=== PATIENT | male | born 1970 | race Caucasian/White ===

== ENCOUNTER 2017-06-19 14:41 | Emergency (ER) | payer BC, OTHER ==
[2017-06-19] MEDS ORDERED: Ketorolac 60 MG/2 ML SDV IM ONE (15:15)
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
[2017-06-19 16:44] VITALS: BP 170/95
== END 2017-06-19 16:42 | disposition home or self-care (01) ==
LOC: MW.ED 14:41
DX: S29.012A Strain of muscle and tendon of back wall of thorax, initial encounter (principal); F17.210 Nicotine dependence, cigarettes, uncomplicated; W11.XXXA Fall on and from ladder, initial encounter
CPT/HCPCS: 96372; 99282; J1885; 99283

== ENCOUNTER 2017-09-22 01:10 | Emergency (ER) | payer BC ==
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
[2017-09-22 02:16] LABS: ACETAMINOPHEN < 3.0 ug/mL; CHLORIDE,CL 108 mmol/L (98-110); SODIUM,NA 144 mmol/L (136-146)
[2017-09-22 02:49] VITALS: BP 130/90
== END 2017-09-22 02:38 ==
LOC: MW.ED 01:10
DX: F32.9 Major depressive disorder, single episode, unspecified (principal); R45.851 Suicidal ideations; F17.210 Nicotine dependence, cigarettes, uncomplicated; Z79.899 Other long term (current) drug therapy
CPT/HCPCS: 36415; 80053; 83735; 84443; 84481; 85025; 93005; 99285; G0480; 99283

== ENCOUNTER 2018-01-23 11:45 | Emergency (ER) | payer BC ==
[2018-01-23] MEDS ORDERED: Aspirin 81 MG Tab.Chew PO ONE (11:51)
[2018-01-23] MEDS ORDERED: Sodium Chloride 0.9% 10 ML Syringe FLUSH PRN (11:51)
[2018-01-23] MEDS ORDERED: Sodium Chloride 0.9% 2.5 ML Syringe FLUSH PRN (11:51)
[2018-01-23] MEDS ORDERED: Nitroglycerin 0.4 MG Tab.SL SL ONE (11:52)
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
--- NOTE | 2018-01-23 12:16 | CR ---
EXAMINATION: Portable chest radiograph. HISTORY: Shortness of breath. FINDINGS: The trachea is midline. The cardiomediastinal silhouette is within normal limits. No pulmonary infilt rates, effusions or pneumothorax. Osseous structures appear unremarkable. IMPRESSION: No acute cardiopulmonary process.
[2018-01-23] MEDS: Nitroglycerin 0.4 MG Tab.SL SL PRN ×2 (12:26→12:33)
[2018-01-23 12:35] LABS: CHLORIDE,CL 103 mmol/L (98-107); SODIUM,NA 140 mmol/L (136-148)
[2018-01-23] MEDS ORDERED: Morphine 2 MG/ML Syringe IVPUSH ONE (12:38)
[2018-01-23] MEDS ORDERED: Ketorolac 30 MG/ML SDV IVPUSH ONE (12:38)
[2018-01-23 14:43] VITALS: BP 154/107
== END 2018-01-23 14:34 | disposition home or self-care (01) ==
LOC: MW.ED 11:45
DX: R07.9 Chest pain, unspecified (principal); F17.210 Nicotine dependence, cigarettes, uncomplicated; F32.9 Major depressive disorder, single episode, unspecified
CPT/HCPCS: 36415; 71045; 80053; 83735; 84484; 85025; 85610; 93005; 96374; 96375; 99285; A9270; G0480; J1885; J2270; 99284

== ENCOUNTER 2018-01-25 01:10 | Emergency (ER) | payer BC ==
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
[2018-01-25 02:01] LABS: CHLORIDE,CL 107 mmol/L (98-107); SODIUM,NA 146 mmol/L (136-148)
[2018-01-25 03:02] VITALS: BP 125/84
== END 2018-01-25 03:10 ==
LOC: MW.ED 01:10
DX: R07.9 Chest pain, unspecified (principal); F10.980 Alcohol use, unspecified with alcohol-induced anxiety disorder; F17.210 Nicotine dependence, cigarettes, uncomplicated; Z79.899 Other long term (current) drug therapy; Y90.6 Blood alcohol level of 120-199 mg/100 ml
CPT/HCPCS: 36415; 80053; 83735; 84484; 93005; 99285; G0480; 99283

== ENCOUNTER 2018-03-18 14:29 | Emergency (ER) | payer SELFPAY ==
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
[2018-03-18] MEDS ORDERED: Ziprasidone Mesylate 20 MG Vial IM ONE (14:59)
[2018-03-18] MEDS ORDERED: Water For Injection, Sterile 20 ML ONE (15:03)
[2018-03-18 15:28] LABS: CHLORIDE,CL 103 mmol/L (98-107); SODIUM,NA 141 mmol/L (136-148)
[2018-03-18 16:15] VITALS: BP 112/76
== END 2018-03-18 16:17 ==
LOC: MW.ED 14:29
DX: F10.129 Alcohol abuse with intoxication, unspecified (principal); Y90.8 Blood alcohol level of 240 mg/100 ml or more; R45.851 Suicidal ideations; F41.9 Anxiety disorder, unspecified; F32.9 Major depressive disorder, single episode, unspecified; F17.210 Nicotine dependence, cigarettes, uncomplicated; Z79.899 Other long term (current) drug therapy
CPT/HCPCS: 36415; 80053; 80305; 81001; 83735; 84443; 85025; 93005; 96372; 99285; G0480; J3486

== ENCOUNTER 2024-06-16 18:10 | Emergency (ER) | payer SELFPAY ==
[2024-06-16 18:35] LABS: BASOPHILS ABSOLUTE AUTO 0.06 K/uL (0.00-0.20); BASOPHILS PERCENT AUTO 0.3 % (0.0-1.0); EOSINOPHILS ABSOLUTE AUTO 0.18 K/uL (0.00-0.45); HEMATOCRIT 43.1 % (42.0-52.0); HEMOGLOBIN 15.1 g/dL (14.0-18.0); IMMATURE GRAN ABSOLUTE AUTO 0.07 K/uL (0.00-0.05); IMMATURE GRAN PERCENT AUTO 0.4 % (0.0-0.4); LYMPHOCYTES ABSOLUTE AUTO 4.56 K/uL (1.00-4.80); LYMPHOCYTES PERCENT AUTO 26.4 % (24.0-44.0); MEAN CORPUSCULAR HEMOGLOBIN 29.7 pg (28.0-32.0); MEAN CORPUSCULAR VOLUME 84.7 fL (83.0-99.0); MONOCYTES ABSOLUTE AUTO 1.34 K/uL (0.00-0.80); MONOCYTES PERCENT AUTO 7.8 % (0.0-8.0); NEUTROPHILS ABSOLUTE AUTO 11.04 K/uL (1.80-7.70); NEUTROPHILS PERCENT AUTO 64.1 % (41.0-71.0); PLATELET COUNT,PLT 252 K/uL (150-400); RED BLOOD CELL COUNT 5.09 M/uL (4.52-5.90); WHITE BLOOD CELL COUNT,WBC 17.25 K/uL (3.9-11.3)
[2024-06-16] MEDS: Ketorolac 30 MG/ML SDV IVPUSH ONE (18:43)
[2024-06-16] MEDS: Sodium Chloride 0.9% 1,000 ML IV ONE ×3 (18:44→20:27)
[2024-06-16 18:58] LABS: APPEARANCE,URINE CLEAR; BILIRUBIN,URINE NEGATIVE (NEGATIVE); COLOR,URINE YELLOW; GLUCOSE,URINE NEGATIVE (NEGATIVE); KETONES,URINE NEGATIVE (NEGATIVE); LEUKOCYTE ESTERASE,URINE NEGATIVE (NEGATIVE); NITRITE,URINE NEGATIVE (NEGATIVE); OCCULT BLOOD,URINE NEGATIVE (NEGATIVE); PROTEIN,URINE NEGATIVE (NEGATIVE); UROBILINOGEN,URINE 0.2 EU/dL (<2.0)
[2024-06-16 19:02] LABS: A/G RATIO 1.1 (0.9-1.6); ALBUMIN 4.5 g/dL (3.4-5.0); BILIRUBIN TOTAL 0.4 mg/dL (0.2-1.0); CALCIUM 9.7 mg/dL (8.5-10.1); CARBON DIOXIDE,CO2 26.5 mmol/L (21.0-32.0); CREATININE 1.3 mg/dL (0.8-1.3); EST CRCL DRUG DOSING (CG) 64.31 mL/min; MAGNESIUM 1.9 mg/dL (1.8-2.4); POTASSIUM,K 4.5 mmol/L (3.5-5.1); PROTEIN TOTAL,TP 8.5 g/dL (6.4-8.2)
[2024-06-16 19:34] LABS: CORONAVIRUS COVID-19 NAA NEGATIVE (NEGATIVE); INFLUENZA A NAA NEGATIVE (NEGATIVE); INFLUENZA B NAA NEGATIVE (NEGATIVE); RESPIRATORY SYNCYTIAL VIR NAA NEGATIVE (NEGATIVE)
[2024-06-16] MEDS: Ondansetron 4 MG/2 ML SDV IVPUSH ONE (19:38)
[2024-06-16] MEDS: Morphine 4 MG/ML Syringe IVPUSH ONE (19:38)
[2024-06-16 19:42] VITALS: BP 137/71; PULSE 67
== END 2024-06-16 21:01 | disposition left against medical advice (07) ==
LOC: MW.ED 18:10
DX: M62.82 Rhabdomyolysis (principal); E86.0 Dehydration; Z75.8 Other problems related to medical facilities and other health care; Z79.899 Other long term (current) drug therapy
CPT/HCPCS: 0241U; 36415; 80053; 81003; 82550; 83735; 85025; 96361; 96374; 96375; 99283; J1885; J2270; J2405; J7030; 99284

== ENCOUNTER 2025-08-26 21:23 | Emergency (ER) | payer MEDICAID ==
[2025-08-26] MEDS ORDERED: Sodium Chloride 0.9% 2.5 ML Syringe FLUSH PRN (21:34)
[2025-08-26] MEDS ORDERED: Sodium Chloride 0.9% 10 ML Syringe FLUSH PRN (21:34)
[2025-08-26 21:43] LABS: BASOPHILS ABSOLUTE AUTO 0.04 K/uL (0.00-0.20); BASOPHILS PERCENT AUTO 0.3 % (0.0-1.0); EOSINOPHILS ABSOLUTE AUTO 0.02 K/uL (0.00-0.45); EOSINOPHILS PERCENT AUTO 0.2 % (0.0-6.0); IMMATURE GRAN ABSOLUTE AUTO 0.03 K/uL (0.00-0.05); IMMATURE GRAN PERCENT AUTO 0.2 % (0.0-0.4); LYMPHOCYTES ABSOLUTE AUTO 2.43 K/uL (1.00-4.80); LYMPHOCYTES PERCENT AUTO 19.0 % (24.0-44.0); MEAN PLATELET VOLUME 8.3 fL (9.4-12.4); MONOCYTES ABSOLUTE AUTO 0.59 K/uL (0.00-0.80); MONOCYTES PERCENT AUTO 4.6 % (0.0-8.0); NEUTROPHILS ABSOLUTE AUTO 9.67 K/uL (1.80-7.70); NEUTROPHILS PERCENT AUTO 75.7 % (41.0-71.0); NRBC ABSOLUTE 0.00 K/uL (0.00-0.02); NRBC PERCENT 0.0 /100WBC (0.0-0.2); PLATELET COUNT,PLT 263 K/uL (150-400); RED BLOOD CELL COUNT 6.02 M/uL (4.52-5.90); WHITE BLOOD CELL COUNT,WBC 12.78 K/uL (3.9-11.3)
[2025-08-26] MEDS: Ondansetron 4 MG/2 ML SDV IVPUSH ONE (21:47)
[2025-08-26 22:00] LABS: A/G RATIO 0.9 (0.9-1.6); ALANINE AMINOTRANSFERASE,ALT 16.0 IU/L (14-63); ASPARTATE AMNIOTRANSFERASE,AST 23.0 IU/L (15-37); BILIRUBIN TOTAL 0.7 mg/dL (0.2-1.0); BLOOD UREA NITROGEN,BUN 12.0 mg/dL (7.0-18.0); CARBON DIOXIDE,CO2 26.1 mmol/L (21.0-32.0); CHLORIDE,CL 100.0 mmol/L (98-107); CREATININE 1.4 mg/dL (0.8-1.3); EST CRCL DRUG DOSING (CG) 59.04 mL/min; GLUCOSE RANDOM 140.0 mg/dL (74-106); POTASSIUM,K 3.8 mmol/L (3.5-5.1); PROTEIN TOTAL,TP 8.0 g/dL (6.4-8.2); SODIUM,NA 140.0 mmol/L (136-148)
[2025-08-26 22:01] LABS: ESTIMATED GFR 60.0 mL/min (>60)
[2025-08-26] MEDS: Magnesium Sulfate 2 GM/50 mL 2 GM in Premix Bag 1 BAG IV ONE (23:40)
[2025-08-27] MEDS: Iopamidol 755 MG/ML 500 ML Multipack Bottle IVPUSH STA (00:24)
[2025-08-27 01:01] LABS: APPEARANCE,URINE CLEAR; GLUCOSE,URINE NEGATIVE (NEGATIVE); OCCULT BLOOD,URINE NEGATIVE (NEGATIVE)
[2025-08-27 02:43] VITALS: BP 127/58; PULSE 56
== END 2025-08-27 02:42 | disposition home or self-care (01) ==
LOC: MW.ED 21:23
DX: K52.9 Noninfective gastroenteritis and colitis, unspecified (principal); F17.200 Nicotine dependence, unspecified, uncomplicated
CPT/HCPCS: 36415; 74177; 80053; 81003; 83690; 83735; 85025; 96361; 96365; 96366; 96375; 99284; A9270; J1171; J2405; J3475; J7030; Q9967; 99283

== ENCOUNTER 2025-09-06 10:42 | Emergency (ER) | payer MEDICAID ==
[2025-09-06 11:13] LABS: BASOPHILS ABSOLUTE AUTO 0.05 K/uL (0.00-0.20); BASOPHILS PERCENT AUTO 0.4 % (0.0-1.0); EOSINOPHILS ABSOLUTE AUTO 0.05 K/uL (0.00-0.45); EOSINOPHILS PERCENT AUTO 0.4 % (0.0-6.0); IMMATURE GRAN ABSOLUTE AUTO 0.04 K/uL (0.00-0.05); IMMATURE GRAN PERCENT AUTO 0.4 % (0.0-0.4); LYMPHOCYTES ABSOLUTE AUTO 2.02 K/uL (1.00-4.80); LYMPHOCYTES PERCENT AUTO 17.8 % (24.0-44.0); MEAN PLATELET VOLUME 8.3 fL (9.4-12.4); MONOCYTES ABSOLUTE AUTO 0.56 K/uL (0.00-0.80); MONOCYTES PERCENT AUTO 4.9 % (0.0-8.0); NEUTROPHILS ABSOLUTE AUTO 8.65 K/uL (1.80-7.70); NEUTROPHILS PERCENT AUTO 76.1 % (41.0-71.0); NRBC ABSOLUTE 0.00 K/uL (0.00-0.02); NRBC PERCENT 0.0 /100WBC (0.0-0.2); PLATELET COUNT,PLT 282 K/uL (150-400); RED BLOOD CELL COUNT 6.10 M/uL (4.52-5.90); WHITE BLOOD CELL COUNT,WBC 11.37 K/uL (3.9-11.3)
[2025-09-06] MEDS: Ondansetron 4 MG/2 ML SDV IVPUSH STA (11:13)
[2025-09-06] MEDS: Ondansetron 4 MG/2 ML SDV ONE (11:16)
[2025-09-06] MEDS: Iopamidol 755 Mg/ML 100 ML Bottle IVPUSH ONE (11:35)
[2025-09-06 11:37] LABS: A/G RATIO 0.9 (0.9-1.6); ALANINE AMINOTRANSFERASE,ALT 23.0 IU/L (14-63); ASPARTATE AMNIOTRANSFERASE,AST 26.0 IU/L (15-37); BILIRUBIN TOTAL 0.7 mg/dL (0.2-1.0); BLOOD UREA NITROGEN,BUN 12.0 mg/dL (7.0-18.0); CARBON DIOXIDE,CO2 25.8 mmol/L (21.0-32.0); CHLORIDE,CL 100.0 mmol/L (98-107); CREATININE 1.3 mg/dL (0.8-1.3); EST CRCL DRUG DOSING (CG) 63.58 mL/min; GLUCOSE RANDOM 119.0 mg/dL (74-106); POTASSIUM,K 4.1 mmol/L (3.5-5.1); PROTEIN TOTAL,TP 8.3 g/dL (6.4-8.2); SODIUM,NA 138.0 mmol/L (136-148)
[2025-09-06 11:41] LABS: ESTIMATED GFR 66.0 mL/min (>60)
[2025-09-06] MEDS: droPERidol 2.5 MG/ML SDV IVPUSH ONE (11:49)
[2025-09-06 12:20] LABS: LACTIC ACID 2.6 mmol/L (0.4-2.0)
[2025-09-06] MEDS: Magnesium Sulfate 2 GM/50 mL 2 GM in Premix Bag 1 BAG IV ONE (12:41)
[2025-09-06] MEDS: Ondansetron 4 MG/2 ML SDV IVPUSH ONE (15:07)
[2025-09-06 16:17] VITALS: BP 130/82; PULSE 52
== END 2025-09-06 16:16 | disposition home or self-care (01) ==
LOC: MW.ED 10:42
DX: R10.84 Generalized abdominal pain (principal); R11.2 Nausea with vomiting, unspecified; Z79.899 Other long term (current) drug therapy; F17.200 Nicotine dependence, unspecified, uncomplicated
CPT/HCPCS: 36415; 71045; 74177; 80053; 83605; 83690; 83735; 84484; 85025; 93005; 96361; 96365; 96375; 96376; 99285; J1790; J2270; J2405; J3475; J7030; Q9967; 93010; 99283